=== PATIENT | female | born 1995 | race Caucasian/White ===

== ENCOUNTER 2024-06-12 01:49 | Inpatient (IN) ==
[2024-06-12] MEDS: SODIUM CHLORIDE 0.9% 1,000 ML IV ONE (02:44)
[2024-06-12] MEDS: BUTORPHANOL TARTRATE 2 MG/ML VIAL IV ONE (05:20)
[2024-06-12] MEDS: SODIUM CHLORIDE 0.9% 1,000 ML IV SCH (05:52)
[2024-06-12] MEDS: ACETAMINOPHEN 500 MG TAB PO SCH (05:54)
[2024-06-12] MEDS ORDERED: CITRIC ACID/SODIUM CITRATE 15 ML UDC PO SCH (06:00)
--- NOTE | 2024-06-12 06:06 | History & Physical Report ---
Date of Service June 12, 2024 Assessment & Plan (1) Encounter for supervision of normal intrauterine in primigravida, antepartum: Plan: Nia is a 28-year-old G1, P0 currently at 39 weeks 2 days gestational age presented initially for labor evaluation. Was noted to have intolerance of labor with a category 2 tracing and several prolonged decelerations and intermittent late decelerations with minimal variability. Recommended we proceed with a primary section for intolerance of labor remote from delivery. Procedure reviewed in detail including risks and benefits. Consent forms reviewed and signed. All questions answered to the patient and her partner satisfaction (2) intrauterine distress noted during labor: (3) Non-reassuring electronic monitoring tracing: History of Present Illness Primary Care Provider: Citlaly Hubbard DO Nia is a 28-year-old G1, P0 currently at 39 weeks 2 days gestational age presented for labor evaluation overnight. Patient was having regular contractions with minimal cervical change. tracing was notable for areas of minimal variability with late decelerations and a several prolonged decelerations initially lasting about 2 minutes and intermittently noted. At approximately 5:21 AM had a prolonged decel lasting approximately 6 to 7 minutes to the 90s. Minimal variability noted following recovery. Patient was found to be 1 cm dilated at that time. I was notified by nursing of the deceleration shortly after the end of the deceleration and reviewed the strip in its entirety. Throughout the strip there was areas where the strip was category 1 with moderate variability and occasional accelerations. Others areas the tracing noted minimal variability with late decelerations. I discussed with patient the concerns related to the tracing in the setting of being remote from delivery at only 1 cm dilated. Discussed the baby is not tolerating labor process remote from delivery and recommend that we proceed with a section due to intolerance of labor. Discussed the procedure in detail with including related risks. Consent forms reviewed and signed. Allergies Allergy/AdvReac Type Severity Reaction Status Date / Time No Known Allergies Allergy Unverified 06/08/24 14:28 Home Medications Medication Instructions Recorded Confirmed Type [id number] PO 11/03/23 06/08/24 History [ Plus] cetirizine 10 mg tablet (Zyrtec) 10 mg PO DAILY PRN 12/08/23 06/08/24 History Patient History Medical History Seasonal allergies IBS (irritable bowel syndrome) Right foot strain Surgical History H/O oral surgery S/P endoscopy S/P colonoscopy [place] teeth extracted S/P tonsillectomy and adenoidectomy Family History Father Myocardial infarction Grandmother (Maternal) Breast cancer Colorectal cancer Mother Fibromyalgia Other Cancer Denies family history of Ovarian cancer Social History (Updated 11/03/23 @ 13:20 by Sneha Obrien RN) Smoking Status: Never smoker Do You Dip or Chew Tobacco: No; Hx Alcohol Use: No Hx Substance Use: No Preferred Language: German Doorperson Required: No Beliefs That Will Affect Care: None marital status: marital status details: Jose Qureshi (29) [phone] Current Living Situation: Spouse Current Living Situation Comment: Lives with FOB, 1 cat- FOB changing litter current occupational status: employed current occupation: [employer] Other Information That Helps Us Care for You: No Feels Safe at Home: Yes Safety Concerns: Feels Safe At This Time Physical Exam Genitourinary: Manual OB Exam: + cervical dilation 1 cm, + cervical effacement 80% and + station -1 OB Exam Monitor Tracing: + external FHT monitor used, + external uterine monitor used, + category II, + normal FHT variability (Minimal but moderate at times) and + late decelerations present (Intermittent) Results & Data Vital Signs (Past 12 Hours) Vital Signs Temp Pulse Resp BP Pulse Ox 06/12/24 05:41 100 06/12/24 05:41 83 06/12/24 05:36 99 06/12/24 05:36 85 06/12/24 05:31 98 06/12/24 05:31 77 06/12/24 05:26 98 06/12/24 05:26 78 06/12/24 02:14 36.6 C 18 06/12/24 02:04 96 H 127/77 Coding Level of Care Code None Diagnoses Encounter for supervision of normal intrauterine in primigravida, antepartum Z34.00 intrauterine distress noted during labor O77.9 Non-reassuring electronic monitoring tracing O36.8390
[2024-06-12 06:07] LABS: Hematocrit (blood only) 29.4 % (37.0-47.0); Hemoglobin 10.3 g/dl (12.0-16.0); Mean Corpuscular Hemoglobin 29.6 pg (25.0-34.0); Mean Corpuscular Volume 84.5 fL (80.0-100.0); Mean Platelet Volume 11.3 fL (9.4-12.4); Platelet Count 175 K/uL (130-400); RDW Coefficient of Variation 13.2 % (11.5-14.5); RDW Standard Deviation 40.2 fL (36.4-46.3); Red Blood Count 3.48 M/uL (4.20-5.40)
[2024-06-12] MEDS: CITRIC ACID/SODIUM CITRATE 15 ML UDC PO SCH (06:11)
--- NOTE | 2024-06-12 06:13 | Anesthesiology Consultation ---
Date of Service June 12, 2024 Assessment & Plan Chart Review Chart Review: Acceptable Risk for Surgery and Patient NOT seen in Pre Admission Testing Consults Requested none ASA ASA2E Proposed Anesthesia Anesthesia Type: Spinal (+Intrathecal narcotics) Risk / Benefits Reviewed With: PT / POA / Parent / Guardian, Accepts Plan and Informed Consent Obtained History Surgery Operation Date: 06/12/24 05:45 Proposed Procedures p Section in - Hernan Stinson MD Height/Weight Height: 5 ft 5 in Weight: 102.058 kg Allergies Allergy/AdvReac Type Severity Reaction Status Date / Time No Known Allergies Allergy Unverified 06/08/24 14:28 Medications Home Medications Medication Instructions Recorded Confirmed Last Taken [id number] PO 11/03/23 06/08/24 Unknown [ Plus] cetirizine 10 mg tablet (Zyrtec) 10 mg PO DAILY PRN 12/08/23 06/08/24 Unknown Active Medications Generic Name Dose Route Start Last Admin Trade Name Freq PRN Reason Stop Dose Admin Acetaminophen 1,000 mg 06/12/24 06:00 06/12/24 06:03 Acetaminophen 500 Mg Tab PO 06/12/24 18:00 500 mg PREOP ABDOUL Administration Sodium Chloride 1,000 mls @ 999 mls/hr 06/12/24 05:45 06/12/24 05:52 Nss IV 06/12/24 06:45 999 mls/hr .Q1H1M ABDOUL Administration Past Medical History Medical History Seasonal allergies IBS (irritable bowel syndrome) Right foot strain Exercise / Class Metabolic Activity II 4-5 Yardwork/Stairs/Walk up hill Past Family History Family History Father Myocardial infarction Grandmother (Maternal) Breast cancer Colorectal cancer Mother Fibromyalgia Other Cancer Denies family history of Ovarian cancer Past Surgical History Surgical History H/O oral surgery S/P endoscopy S/P colonoscopy [place] teeth extracted S/P tonsillectomy and adenoidectomy Past Anesthesia History No Hx of Anesthesia Complications and No Family Hx of Anesthesia Complications History of PONV No Hx of PONV and No Hx of Motion Sickness Social History Smoking Status: Never smoker Do You Dip or Chew Tobacco: No Hx Alcohol Use: No Hx Substance Use: No Physical Exam Vital Signs Last Vital Signs Temp 36.6 C 06/12/24 02:14 Pulse 82 06/12/24 06:11 Resp 18 06/12/24 02:14 BP 127/77 06/12/24 02:04 Pulse Ox 100 06/12/24 06:11 ENMT Mouth: no dentition abnormality Thyromental Distance: > or= 3.5 Finger Breadths Mallampati Class: II Neck normal visual inspection Respiratory normal respiratory effort Auscultation: lungs clear to auscultation bilaterally Cardiovascular Rate/Rhythm: regular rate and regular rhythm Psychiatric Orientation: alert Testing Laboratory Results 06/12/24 05:50
[2024-06-12] MEDS: ceFAZolin 3000MG 3,000 MG/72.5 ML BAG IV SCH (06:15)
[2024-06-12] MEDS ORDERED: MoRPHine SULFATE PF 1 MG/ML 10 ML AMP/VIAL ONE (06:18)
[2024-06-12] MEDS ORDERED: fentaNYL citrate PF 100 MCG/2 ML VIAL ONE (06:52)
[2024-06-12] MEDS ORDERED: OXYTOCIN 10 UNITS/ML VIAL ONE (06:58)
[2024-06-12] MEDS ORDERED: ONDANSETRON INJ 2 MG/ML 2 ML VIAL ONE (06:58)
[2024-06-12] MEDS ORDERED: PHENYLEPHRINE HCL 10 MG/ML VIAL ONE (06:58)
[2024-06-12] MEDS ORDERED: KETOROLAC 30 MG/ML VIAL ONE (06:58)
[2024-06-12] MEDS: KETOROLAC 30 MG/ML VIAL IV SCH (07:00)
[2024-06-12] MEDS ORDERED: ONDANSETRON INJ 2 MG/ML 2 ML VIAL IV PRN ×2 (07:13→07:26)
[2024-06-12] MEDS ORDERED: BENZOCAINE 20% SPRY 85 APPLN/85 GM CAN EXT PRN (07:13)
[2024-06-12] MEDS ORDERED: MAGNESIUM HYDROXIDE SUSP 30 ML UDC PO PRN (07:13)
[2024-06-12] MEDS ORDERED: HYDROCORTISONE ACETATE 25 MG SUPP PR PRN (07:13)
[2024-06-12] MEDS ORDERED: CALCIUM CARBONATE 500 MG CHEWABLE TAB PO PRN (07:13)
[2024-06-12] MEDS ORDERED: SENNA 8.6 MG TAB PO PRN (07:13)
--- NOTE | 2024-06-12 07:13 | Operative Report ---
Post Operative Report Pre & Post Diagnosis Operation Date: 06/12/24 05:45 Pre-Op Diagnosis: 1. Term 2. intolerance Post-Op Diagnosis: 1. Term 2. intolerance 3. Delivery of live female child at 0639 I identified the patient and participated in the time-out.: Yes Procedure Operation Date: 06/12/24 05:45 Actual Procedures p Section in LD(Bilateral) - Hernan Stinson MD Surgeon Hernan Stinson MD Rod Tape Operator Nursing staff Quantitative Blood Loss (QBL) see chart Findings Consistent with Post-Op Diagnosis Specimens Placenta Description of Procedure Patient was taken the operating room after consent was ensured. Upon presentation she was properly identified. Anesthesia obtained and patient prepped and draped in normal sterile fashion. Preprocedural timeout was performed. A Pfannenstiel incision was made with a knife. This was carried down to underlying fascia with the Bovie and blunt dissection. The fascia was nicked at the midline with a knife and extended laterally with blunt dissection. Abdominal cavity was entered bluntly and placed on stretch to provide adequate room for delivery. A low transverse uterine incision was made with a knife. Head of the was delivered through the hysterotomy followed by body and shoulders. The cord was double clamped and cut and taken to the waiting nursery staff. Attention was turned to delivery of the placenta which delivered intact with three-vessel cord gentle cord traction. Uterus was exteriorized and several passes were made to remove any remaining membranes with a dry lap. Hysterotomy was reapproximated with 0 Vicryl continuous running lock stitch with a second imbricating layer performed. Excellent hemostasis noted. Posterior cul-de-sac cleaned of clots and debris's. Uterus returned maternal abdomen and right left paracolic gutters cleaned of clots and debris's. Hysterotomy remained hemostatic. Subcutaneous, fascia and muscle layers inspected noted be hemostatic. Fascia was reapproximated 0 Vicryl continuous running stitch. Subcutaneous layer reapproximated 2 layers using 2-0 plain. Skin reapproximated with 3-0 Vicryl and continuous subcuticular stitch. Dermabond placed on top. Both mother and in stable condition at the completion of the case. Needle sponge and instrument counts correct at the completion of the case. No complications noted and blood loss per QBL. I attest to the content of the Intraoperative Record and any orders documented therein. Any exceptions are noted below. OB Procedure Charges [id number]
[2024-06-12] MEDS ORDERED: NALBUPHINE HCL INJ 10 MG/ML AMP IV PRN (07:26)
[2024-06-12] MEDS ORDERED: HYDROmorphone INJ 0.5 MG/0.5 ML SYR IV PRN (07:26)
[2024-06-12] MEDS ORDERED: MoRPHine SULFATE 2 MG/ML CARP IV PRN (07:26)
[2024-06-12] MEDS ORDERED: NALOXONE HCL 1 MG in SODIUM CHLORIDE 0.9% 1,000 ML IV PRN (07:26)
[2024-06-12] MEDS ORDERED: ePHEDrine sulfate 50 MG/ML AMP IV PRN (07:26)
[2024-06-12] MEDS ORDERED: NALOXONE HCL 0.4 MG/1 ML VIAL/CARP IV PRN (07:26)
[2024-06-12] MEDS ORDERED: PROMETHAZINE 6.25 MG/50.25 ML BAG IV PRN (07:26)
[2024-06-12] MEDS ORDERED: NALOXONE HCL 0.08 MG in SYRINGE 1.8 ML IV PRN (07:26)
[2024-06-12] MEDS ORDERED: MEPERIDINE HCL 25 MG/ML CARP/VIAL IV PRN (07:26)
[2024-06-12] MEDS ORDERED: diphenhydrAMINE 50 MG/ML VIAL IV PRN (07:26)
[2024-06-12] MEDS ORDERED: OXYTOCIN 20 UNITS/LR 1,002 ML IV SCH (07:30)
[2024-06-12] MEDS ORDERED: DC INTRASPINAL MORPHINE SCH (07:30)
[2024-06-12] MEDS ORDERED: NO NARCOTICS OR SEDATIVES SCH (07:30)
[2024-06-12] MEDS: FAMOTIDINE 20MG IV PUSH 20 MG/5 ML SYR IV STA (07:43)
[2024-06-12] MEDS: SIMETHICONE 80 MG CHEW PO SCH (12:50)
[2024-06-12] MEDS: ACETAMINOPHEN 325 MG TAB PO SCH (13:16)
[2024-06-12] MEDS: FERROUS SULFATE 325 MG TAB PO SCH (14:35)
[2024-06-12] MEDS: PRENATAL VITAMIN 1 TAB PO SCH (14:35)
[2024-06-12] MEDS: DOCUSATE SODIUM 100 MG CAP PO SCH (14:37)
[2024-06-13] MEDS: oxyCODONE HCL IR 5 MG TAB (IMMEDIATE RELEASE) PO PRN ×2 (00:22→12:26)
[2024-06-13] MEDS ORDERED: diphenhydrAMINE Capsule 25 MG CAP PO PRN (01:27)
[2024-06-13] MEDS ORDERED: PROMETHAZINE 12.5 MG/50.5 ML BAG IV PRN (01:27)
[2024-06-13] MEDS ORDERED: diphenhydrAMINE 50 MG/ML VIAL IV PRN (01:27)
[2024-06-13] MEDS ORDERED: HYDROmorphone INJ 0.5 MG/0.5 ML SYR IV PRN (01:27)
[2024-06-13] MEDS: SODIUM CHLORIDE 0.9% 1,000 ML IV SCH ×2 (01:56)
[2024-06-13] MEDS: MoRPHine SULFATE PF 1 MG/ML 10 ML AMP/VIAL INT SPINAL ONE (01:56)
[2024-06-13] MEDS: DIPHTHER/TETAN/PERTUS Vaccine (Tdap, Adol/Adult) 0.5mL IM ONE (01:56)
[2024-06-13 06:16] LABS: Hematocrit (blood only) 26.1 % (37.0-47.0); Hemoglobin 8.7 g/dl (12.0-16.0)
--- NOTE | 2024-06-13 06:36 | Obstetrical Progress Note ---
Date of Service June 13, 2024 Assessment & Plan (1) state: (2) Bradycardia: (3) Hypotension: Plan Summer is a 28yo day 1 s/p for intolerance of labor. Feeling well this AM, BP and HR on the low side. Ordered TSH level Continue care Encourage ambulation and Around the clock NSAIDs and Tylenol Hgb: 10.3 -> 8.7, asymptomatic Plans to go home tomorrow or next day if medically stable and feeling well Followup with Dr. Stinson in 6wks. Admission and Anticipated Discharge Date Admission Date: June 12, 2024 Supervising Physician Co-Signing Physician Notes Resident Physician Supervision Note: I interviewed and examined the patient. Discussed with Dr. Griffin and agree with findings and plan as documented in the note. Any exceptions or clarifications are listed here: [None] Documented By: Mayuri Diamond MD, FACOG Subjective Summer is a 28yo day 1 s/p for intolerance of labor. Feeling well this AM, endorses some sleep overnight. Pain: endorses mainly incision site pain/soreness, otherwise tolerable Ambulation: yes Gas: not yet Voiding: urinating, no BM yet Lochia: decreasing Diet: tolerating, appetite improving Feeds: and supplementing as needed Denies headache, chest pain, SOB, n/v/d, LE pain/swelling, LE numbness/tingling. Review of Systems Review of Systems: Denies fever, body aches, chills, sweats, vision changes, significant vaginal bleeding/discharge. Physical Exam Physical Exam: General: A&Ox3, resting comfortably in bed, in no apparent distress, nontoxic in appearance Skin: warm, dry, intact HEENT: EOM intact, PERRL b/l Cardiovascular: RRR, +s1/s2, no murmurs/rubs/gallops Pulmonary: clear to auscultation b/l, no wheezes/rales/rhonchi GI/Abd: +BS, uterine fundus firm and mildly tender to palpation, 2 fingerwidths superior to level of umbilicus; - Scar: low-transverse incision scar mil dly tender to palpation and appearing dry but otherwise healing well with no significant erythema, swelling, or wa rmth, no oozing of blood or other fluid Extremities: no significant swelling or erythema of b/l LE, nontender to palpation, negative Jack's b/l; warm, no clubbing or cyanosis Neuro: no facial droop, speech intact but slightly slow, moves all extremities on command Results & Data Vital Signs (Past 12 Hours) Vital Signs Temp Pulse Resp BP Pulse Ox O2 Del Method 06/13/24 04:35 36.5 C 58 L 18 91/55 L 97 Room Air 06/13/24 01:20 16 94 06/13/24 00:10 36.3 C L 72 18 100/63 98 Room Air 06/13/24 00:10 18 96 06/12/24 23:15 18 95 06/12/24 22:35 20 97 06/12/24 21:42 20 97 06/12/24 20:45 20 97 06/12/24 19:35 20 96 06/12/24 19:35 36.6 C 66 20 116/81 96 Room Air 06/12/24 18:45 20 96 Laboratory Results 06/13/24 06/12/24 Range/Units 05:50 05:50 Hgb 8.7 L (12.0-16.0) g/dl Hct 26.1 L (37.0-47.0) % Treponema pallidum Ab Negative (Negative) Resident Activity Tracking Resident Involvement: Resident Care Provided Care Provided: OB Delivery (3) Hypotension Hypotension type: unspecified hypotension type Qualified Code(s): I95.9 - Hypotension, unspecified
[2024-06-13] MEDS ORDERED: KETOROLAC 30 MG/ML VIAL IV PRN (07:14)
[2024-06-13] MEDS: IBUPROFEN 600 MG TAB PO SCH (07:41)
[2024-06-13] MEDS: bisacodyL 5 MG TABEC PO SCH (20:35)
--- NOTE | 2024-06-14 07:02 | Obstetrical Progress Note ---
Date of Service June 14, 2024 Assessment & Plan (1) state: Plan Summer is a 28yo day 2 s/p for intolerance of labor. Feeling well this AM, low BP and HR have resolved. TSH within normal limits Continue care Encourage ambulation and Around the clock NSAIDs and Tylenol Hgb: 10.3 -> 8.7 on 06/13/24, asymptomatic Plans to go home once she is able to pass gas Followup with Dr. Stinson in 6wks. Admission and Anticipated Discharge Date Admission Date: June 12, 2024 Supervising Physician Co-Signing Physician Notes Resident Physician Supervision Note: I interviewed and examined the patient. Discussed with Dr. Griffin and agree with findings and plan as documented in the note. Any exceptions or clarifications are listed here: Doing well. Pain controlled. Continue routine ppd2. Documented By: Esperanza Patino MD, FACOG Subjective Summer is a 28yo day 2 s/p for intolerance of labor. Feeling well this AM, endorses some sleep overnight. Pain: endorses mainly incision site pain/soreness, improved from day prior Ambulation: yes Gas: not yet Voiding: urinating, no BM yet Lochia: decreasing Diet: tolerating, appetite improving Feeds: pumping, supplementing as needed Denies headache, chest pain, SOB, n/v/d, LE pain/swelling, LE numbness/tingling. Review of Systems Review of Systems: Denies fever, body aches, chills, sweats, vision changes, significant vaginal bleeding/discharge. Physical Exam Physical Exam: General: A&Ox3, resting comfortably in bed, in no apparent distress, nontoxic in appearance Skin: warm, dry, intact HEENT: EOM intact, PERRL b/l Cardiovascular: RRR, +s1/s2, no murmurs/rubs/gallops Pulmonary: clear to auscultation b/l, no wheezes/rales/rhonchi GI/Abd: +BS, uterine fundus firm, 1 fingerwidth inferior to level of umbilicus, suprapubic tenderness to palpation - Scar: low-transverse incision scar mil dly tender to palpation and appearing dry but otherwise healing well with no significant erythema, swelling, or warmth, no oozing of blood or other fluid Extremities: no significant swelling or erythema of b/l LE, nontender to palpation, negative Jack's b/l; warm, no clubbing or cyanosis Neuro: no facial droop, speech intact but slightly slow, moves all extremities on command Results & Data Vital Signs (Past 12 Hours) Vital Signs Temp Pulse Resp BP Pulse Ox O2 Del Method 06/13/24 20:30 Room Air 06/13/24 20:30 36.6 C 65 20 104/69 100 Room Air Laboratory Results 06/13/24 Range/Units 08:55 TSH 2.582 (0.300-4.500) uIu/ml Resident Activity Tracking Resident Involvement: Resident Care Provided Care Provided: OB Delivery
[2024-06-14] MEDS ORDERED: bisacodyL 10 MG SUPP PR PRN (07:14)
[2024-06-14] MEDS: IBUPROFEN 600 MG TAB PO PRN (07:56)
[2024-06-14 13:59] VITALS: BP 105/71; PULSE 71; RESP 16; TEMP 97.7; O2SAT 100
[2024-06-14] MEDS: ACETAMINOPHEN 325 MG TAB PO PRN (14:12)
== END 2024-06-14 16:13 | disposition home or self-care (01) | DRG 788 ==
LOC: OPB 01:49 → 4S1 01:52 → 4E2 10:26